=== PATIENT | male | born 1985 | race Caucasian/White ===

== ENCOUNTER 2021-06-14 10:42 | Emergency (ER) | payer BC ==
[2021-06-14 11:21] LABS: BASO # 0.04 (0.02-0.10); EOS % 1.8 % (0.0-4.0); HEMATOCRIT 43.5 % (42.0-52.0); HEMOGLOBIN 14.8 g/dL (13.5-18.0); LYMPH# 1.85 (1.50-4.00); MEAN CELL VOLUME 89 fl (78-100); MEAN CORPUSCULAR HEMOGLOBIN 30 pg (27-31); MEAN CORPUSCULAR HGB CONC 34 g/dL (33-37); MEAN PLATELET VOLUME 8.8 fl (7.4-10.4); MONO # 0.85 (0.20-0.80); NEU # 7.98 (1.40-6.50); PLATELET COUNT 227 K/mm3 (130-400); RED CELL DISTRIBUTION WIDTH 12.3 % (11.5-14.5)
[2021-06-14 11:38] LABS: ALBUMIN 4.1 g/dL (3.5-5.0)
[2021-06-14 11:39] LABS: POTASSIUM 3.6 mmol/L (3.5-5.1); SODIUM 135 mmol/L (136-145)
[2021-06-14 11:40] LABS: CALCIUM 8.9 mg/dL (8.3-10.5)
[2021-06-14 11:41] LABS: GLUCOSE 116 mg/dL (75-110); TOTAL PROTEIN 7.5 g/dL (6.4-8.3)
[2021-06-14 11:42] LABS: CARBON DIOXIDE 21 mmol/L (22-29)
[2021-06-14 11:43] LABS: TOTAL BILIRUBIN 0.4 mg/dL (0.2-1.2)
[2021-06-14 11:46] LABS: AST-SGOT 28 U/L (5-34)
[2021-06-14 11:47] LABS: ALT/SGPT 30 U/L (0-55)
[2021-06-14 12:01] LABS: TROPONIN-I < 0.03 ng/mL (<0.030)
[2021-06-14 12:27] VITALS: BP 140/84
== END 2021-06-14 12:30 | disposition home or self-care (01) ==
LOC: ED 10:42
PROVIDERS: Nurse Practitioner
DX: F41.9 Anxiety disorder, unspecified (principal); E86.0 Dehydration; E16.2 Hypoglycemia, unspecified; F17.210 Nicotine dependence, cigarettes, uncomplicated
CPT/HCPCS: J7030